=== PATIENT | female | born 1955 | race Caucasian/White ===

== ENCOUNTER → 2018-08-15 10:36 | Outpatient (CLI) | payer MEDICARE, OTHER, SELFPAY ==
--- NOTE | 2018-08-15 10:38 | DI.RAD.S_ITS ---
PROCEDURE: XR WRIST LT MIN 3V INDICATIONS: left wrist pain after fall TECHNIQUE: 4 views of the wrist were acquired. COMPARISON: None. FINDINGS: Bones: No fractures or dislocations. No suspicious bony lesions. Moderate first CMC joint degeneration. Scaphoid view: Intact scaphoid. Soft tissues: No suspicious soft tissue calcifications. IMPRESSION: No displaced fracture seen. If there is continued pain, followup exam or additional imaging such as MRI or CT could be performed for further assessment. Dictated by: Joseluis Bowens [facility] Interpreted: Tish Guevara MD on 08/15/2018 at 11:04 Approved by: Tish Guevara MD, PhD on 08/15/2018 at 15:11
== END ==
PROVIDERS: PCP Family Medicine; Visit Provider Family Medicine
DX: M25.532 Pain in left wrist (principal)
CPT/HCPCS: 73110

== ENCOUNTER → 2018-09-22 07:56 | Outpatient (CLI) | payer MEDICARE, OTHER, SELFPAY ==
--- NOTE | 2018-09-22 | DI.MG.S_ITS ---
BILATERAL DIGITAL SCREENING MAMMOGRAM 3D/2D WITH CAD: 09/22/2018 CLINICAL: Routine screening. Comparison is made to exams dated: 08/19/2017 mammogram, 07/02/2016 mammogram, and 06/13/2015 mammogram - [facility]. The tissue of both breasts is extremely dense, which lowers the sensitivity of mammography. Current study was also evaluated with a Computer Aided Detection (CAD) system. No significant masses, calcifications, or other findings are seen in either breast. There has been no significant interval change. IMPRESSION: NEGATIVE There is no mammographic evidence of malignancy. A 1 year screening mammogram is recommended. This exam was interpreted at Station ID: [id number]. NOTE: For mammograms, a report in lay terms will be sent to the patient. Approximately 15% of breast malignancies will not be visualized mammographically. In the management of a palpable breast mass, a negative mammogram must not discourage biopsy of a clinically suspicious lesion. Electronically Signed By: Stefani saenz/cynthia:09/22/2018 09:28:10 letter sent: Normal Exam ACR BI-RADS Category 1: Negative 3341F
== END ==
PROVIDERS: PCP Family Medicine; Visit Provider Family Medicine
DX: Z12.31 Encounter for screening mammogram for malignant neoplasm of breast (principal)
CPT/HCPCS: 77063; 77067

== ENCOUNTER → 2019-10-05 11:13 | Outpatient (CLI) | payer MEDICARE, OTHER, SELFPAY ==
--- NOTE | 2019-10-05 | DI.MG.S_ITS ---
BILATERAL DIGITAL SCREENING MAMMOGRAM 3D/2D WITH CAD: 10/05/2019 CLINICAL: Routine screening. Comparison is made to exams dated: 09/22/2018 mammogram - [facility], 08/19/2017 mammogram, and 07/02/2016 mammogram - [facility]. The tissue of both breasts is heterogeneously dense. This may lower the sensitivity of mammography. Current study was also evaluated with a Computer Aided Detection (CAD) system. No significant masses, calcifications, or other findings are seen in either breast. There has been no significant interval change. IMPRESSION: NEGATIVE There is no mammographic evidence of malignancy. A 1 year screening mammogram is recommended. This exam was interpreted at Station ID: [id number]. NOTE: For mammograms, a report in lay terms will be sent to the patient. Approximately 15% of breast malignancies will not be visualized mammographically. In the management of a palpable breast mass, a negative mammogram must not discourage biopsy of a clinically suspicious lesion. Electronically Signed By: Sagar ruelas/cynthia:10/05/2019 11:54:49 copy to: ARIK BLOUNT letter sent: Normal Exam ACR BI-RADS Category 1: Negative 3341F
== END ==
PROVIDERS: Family Provider Internal Medicine; PCP Family Medicine; Visit Provider Family Medicine
DX: Z12.31 Encounter for screening mammogram for malignant neoplasm of breast (principal)
CPT/HCPCS: 77063; 77067

== ENCOUNTER 2020-04-07 10:24 | Emergency (ER) | payer MEDICARE, OTHER, SELFPAY ==
[2020-04-07 10:53] VITALS: BP 175/84; PULSE 74; RESP 14; TEMP 37.2; O2SAT 97; BMI 22.0
--- NOTE | 2020-04-07 11:05 | DI.RAD.S_ITS ---
PROCEDURE: XR HAND RT MIN 3V INDICATIONS: hand swelling and pain TECHNIQUE: 3 views of the hand(s) acquired. COMPARISON: None. FINDINGS: Bones: No fractures or dislocations. Carpal bones are normally aligned. Osteoarthritic changes throughout right hand and wrist is seen. No suspicious bony lesions. Soft tissues: No suspicious soft tissue calcifications. IMPRESSION: Right hand and wrist joint osteoarthritis. No gross acute fracture or dislocation. Dictated by: Jai Fowler M.D. on 04/07/2020 at 11:36 Approved by: Jai Fowler M.D. on 04/07/2020 at 11:43
--- NOTE | 2020-04-07 11:05 | DI.RAD.S_ITS ---
PROCEDURE: XR WRIST RT MIN 3V INDICATIONS: hand swelling and pain TECHNIQUE: 4 views of the wrist were acquired. COMPARISON: [facility], CR, XR WRIST LT MIN 3V, 08/15/2018, 10:48. FINDINGS: Bones: No fractures or dislocations. Osteoarthritic changes throughout wrist joints are seen more prominent at first CMC joint and scaphotrapezial joint. No suspicious bony lesions. Scaphoid view: Scaphoid is grossly intact. Nonspecific intraosseous cyst formation in distal scaphoid is seen. Soft tissues: No suspicious soft tissue calcifications. IMPRESSION: Wrist joint osteoarthritis. No acute wrist fracture or dislocation. Intraosseous cyst formation in distal scaphoid. Dictated by: Jai Fowler M.D. on 04/07/2020 at 11:43 Approved by: Jai Fowler M.D. on 04/07/2020 at 11:44
--- NOTE | 2020-04-07 12:06 | ED_ITS ---
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 Her history is notable for a recent trapezium fracture, partial rupture of the flexor carpi radialis, and a de Quervain tenosynovitis that were diagnosed earlier this year. She did wear a splint for approximately 2 months but began to do normal activities in early February and for the last her 2 months has been pretty much back to her normal routine, doing things like lifting weights doing dishes gardening etc. H were performed who will owever 5 days ago she woke up in the morning and the swelling and pain had returned and she says that it felt pretty much exactly like it did when she 1st had her injury. She reports no inciting incident, she does not remember lifting anything especially heavy, overuse compared to what she has been doing the last 2 months or anything else that might have caused the area to be come reinflamed. Notably, she is a retired physical therapist. The original injury occurred when she was lifting a extremely heavy logs to help her with a project. Her trapezium fracture was not discovered initially, but was found with a diagnostic ultrasound after she was having continued significant pain. She has seen Dr. Rodriguez for this previously. She notes that her pain today as a 5 or 6/10 and the pain worsening over the last 5 days is what has brought her into the emergency department. She did try taking a tramadol yesterday that she had left over from a recent issue with her other hand where she had a thorn embedded in her joint. This provided limited relief. She has been icing the area and attempted to wear the brace that she previously was wearing, however the swelling was enough that the brace is not fitting well and it was very uncomfortable. She is concerned about a possible nonunion of her trapezium. Last TNF inhibitor dose was approximately 3 weeks ago. Complaint: extremity pain Onset (ago): day(s) (5) Pain Consistency: constant Location: right Severity scale (1-10): 6 Quality: aching and sharp Radiation: none Relieving factors: cold therapy and medication Exacerbating factors: range of motion Associated symptoms: denies other symptoms Context: other (healing from de quervains, flexor carpi radialis tear and fracture of trapezium) Related Data Home Medications Medication Instructions Recorded Confirmed cyclosporine [Restasis] 1 drp BID #0 02/14/18 Previous Rx's Medication Instructions Recorded lisinopril 2.5 mg tablet 2.5 mg PO DAILY #90 tab 04/04/18 ibuprofen 600 mg PO Q6H PRN #20 tab NS MDD 04/07/20 3200mg Allergies Allergy/AdvReac Type Severity Reaction Status Date / Time dapsone [DAPSONE] Allergy Mild facial Verified 04/07/20 10:57 swelling Review of Systems <Rosalia Zhao PA-C - Last Filed: 04/07/20 22:50> Review of Systems Narrative: GENERAL: Denies chills, fatigue, malaise, fever, sweats. HEENT: Denies sinus pain, ear pain, sore throat, difficulty swallowing, dizziness. RESPIRATORY: Denies dyspnea, cough, wheezing, hemoptysis, sputum. CARDIOVASCULAR: Denies chest pain, palpitations, orthopnea, edema, GASTROINTESTINAL: Denies nausea, vomiting, abdominal pain, diarrhea, cons tipation, melena. : Denies dysuria, frequency, incontinence, hematuria, urinary retention. MUSCULOSKELETAL: She has significant pain and some swelling of her right wrist (thumbside) that has been present for 5 days now, pain has been worsening she has reduced range of motion 2nd to the pain and swelling. Denies weakness, or bony pain SKIN: Denies rash, skin lesions, or other NEUROLOGIC: Denies weakness, headache, numbness, change in speech, confusion, seizures, incoordination. PSYCHIATRIC: No concerning psychosocial issues. 12 point review of systems is negative except for those stated above Patient History <Rosalia Zhao PA-C - Last Filed: 04/07/20 22:50> Medical History Abnormal Pap smear of cervix (Resolved ~1979) Cataract (Resolved ~2008) Cervical spine disease (Chronic) Chicken pox (Resolved ~1992) Colon polyps (Resolved 2002) GA (granuloma annulare) (Chronic 2012) History of recurrent ear infection (Chronic 2014) Hypertension (Chronic 2014) Lumbar disc disease (Chronic 1997) Mitral murmur (Chronic 1970) Psoriasis (Chronic) Seasonal affective disorder (Chronic 1997) Surgical History Anesthesia complication (Resolved) History of cataract removal with insertion of prosthetic lens (Resolved 2007) History of discectomy (Resolved 1997) History of lumbar fusion (Resolved 2008) History of lumbar fusion (Resolved 2016) History of thumb surgery (Resolved 1982) History of umbilical hernia repair (Resolved 2000) Status post appendectomy (Resolved 1980) Status post bunionectomy (Resolved 1996) Family History Father Mental health problem Grandfather Heart disease Mother Colon cancer Heart disease Congestive heart failure Rheumatic heart disease Sister Age: 69 Ventricular tachycardia Grandmother No problems noted. Grandfather Heart disease Grandmother No problems noted. Sister No problems noted. Social History Smoking Status: Unknown if ever smoked Smoking Status: Unknown if ever smoked alcohol intake frequency: 0-2 drinks per day Substance Use Type: does not use Exam <Rosalia Zhao PA-C - Last Filed: 04/07/20 22:50> Initial Vital Signs Initial Vital Signs: Vital Signs Temperature 98.9 F 04/07/20 10:53 Pulse Rate 74 04/07/20 10:53 Respiratory Rate 14 04/07/20 10:53 Blood Pressure 175/84 H 04/07/20 10:53 Pulse Oximetry 97 04/07/20 10:53 <Stewart Herrera MD - Last Filed: 04/08/20 07:53> Initial Vital Signs Initial Vital Signs: Vital Signs Temperature 98.9 F 04/07/20 10:53 Pulse Rate 74 04/07/20 10:53 Respiratory Rate 14 04/07/20 10:53 Blood Pressure 175/84 H 04/07/20 10:53 Pulse Oximetry 97 04/07/20 10:53 Course <Rosalia Zhao PA-C - Last Filed: 04/07/20 22:50> Orders Ordered: Discontinued Medications Ketorolac Tromethamine (Toradol) 15 mg IM NOW ONE Stop: 04/07/20 12:28 Last Admin: 04/07/20 13:04 Dose: 15 mg Documented by: LOC Consultations Consultation #1: Spoke with Dr. Coleman on-call for Ortho who advises it is possible that her severe pain could be due to this cyst in her scaphoid was noted on x-ray. Advises that we put her in immobilization and that she continue NSAIDs over the weekend definitely keep her appointment scheduled already for Saturday with Dr. Rodriguez as she may need some more detailed workup for this. Time: 12:42 Vital Signs Vital signs: Vital Signs - 8 hr 04/07/20 10:53 Temperature 98.9 F Pulse Rate 74 Respiratory Rate 14 Blood Pressure 175/84 H Pulse Oximetry 97 <Stewart Herrera MD - Last Filed: 04/08/20 07:53> Orders Ordered: Discontinued Medications Ketorolac Tromethamine (Toradol) 15 mg IM NOW ONE Stop: 04/07/20 12:28 Last Admin: 04/07/20 13:04 Dose: 15 mg Documented by: LOC Vital Signs Vital signs: Vital Signs - 8 hr 04/07/20 10:53 Temperature 98.9 F Pulse Rate 74 Respiratory Rate 14 Blood Pressure 175/84 H Pulse Oximetry 97 MDM - Extremity (Nontraumatic) <Rosalia Zhao PA-C - Last Filed: 04/07/20 22:50> Imaging Data Extremity x-ray #1: Attestation: I personally reviewed and interpreted this imaging study as follows: Radiologist's Impression: [address] [address] XRay Report Signed Patient: Joellen Dee EMR#: [id number] : [id number]:[id number] Age/Sex: 64 / FDate of Service: 04/07/20 Loc: ED Accession Number: [id number] Procedure: XR wrist RT min 3V Ordering Provider: Stewart Herrera MD PROCEDURE: XR WRIST RT MIN 3V INDICATIONS: hand swelling and pain TECHNIQUE: 4 views of the wrist were acquired. COMPARISON: [facility], CR, XR WRIST LT MIN 3V, 08/15/2018, 10:48. FINDINGS: Bones: No fractures or dislocations. Osteoarthritic changes throughout wrist joints are seen more prominent at first CMC joint and scaphotrapezial joint. No suspicious bony lesions. Scaphoid view: Scaphoid is grossly intact. Nonspecific intraosseous cyst formation in distal scaphoid is seen. Soft tissues: No suspicious soft tissue calcifications. IMPRESSION: Wrist joint osteoarthritis. No acute wrist fracture or dislocation. Intraosseous cyst formation in distal scaphoid. Dictated by: Jai Fowler M.D. on 04/07/2020 at 11:43 Approved by: Jai Fowler M.D. on 04/07/2020 at 11:44 MDM Narrative Medical decision making narrative: This is a well-appearing 64-year-old with a history of granuloma annulare, hypertension, recent R trapezium fracture, R de Quervain tenosynovitis and partial rupture of the R flexor carpi radialis who presents to the emergency department with severe right wrist pain that began approximately 5 days ago in the same area of her previous injuries. X-ray was notable for a osseous cyst of the scaphoid and ortho was consulted. She was ultimately discharged with her thumb spica splint that had been previously fitted for her from previous injuries to the area and instructions for rice as well as a prescription for ibuprofen. She has a follow-up appointment with her orthopedist scheduled for telemedicine tomorrow as well as an in-person visit on Saturday. Differential diagnoses that were considered included trapezium fracture nonunion, tenosynovitis, cyst, osseous cyst Discharge Plan Departure Patient Disposition: Home Clinical Impression: Bone cyst, Acute pain of right wrist Discharge Date/Time: 04/07/20 13:31 Instructions: How To Perform RICE (Rest, Ice, Compress, Elevate), DI for Wrist Pain Activity Restrictions/Additional Instructions: Thank you for letting us be part of your care today in the emergency department. There is no evidence of an emergent or life threatening illness at this time, but follow up with your doctor in 1-2 days is recommended nonetheless to continue to rule out serious underlying causes of your symptoms. Please call the office for an appointment. Please return to the Emergency Department for any worsening or persistent symptoms. Please take medications as directed. After consultation with the orthopedic surgeon on-call, he does advise it is very important that you keep your follow-up appointment on Saturday with Dr. Rodriguez as you need a more specific workup and further evaluation. It is possible that the significant pain you have been experiencing is due to the cyst that is present in your scaphoid bone. You should continue to use RICE, and keep your wrist in the thumb spica splint at all times. If it is bothersome to wear this splint with the swelling that you have despite icing, you may use the soft splint that you have that I recommend doing an Sam wrap underneath it to give you better support. Ideally wearing a thumb spica splint is preferable The best medications for the type of pain you are having are NSAIDs. I have prescribed ibuprofen 600 mg tabs for you with a paper prescription printed out as we discussed. And you can take a maximum of 3200 mg per day spaced out. If you do not need this much is preferable to only take a maximum 2400mg. I have provided a printout of the x-ray interpretations from today as well for you. I do recommend he also keep your telemedicine visit that you have set up for tomorrow. Prescriptions: New ibuprofen 600 mg tablet 600 mg PO Q6H MDD 3200mg PRN (Reason: pain) Qty: 20 RF: 0 No Action cyclosporine [Restasis] 1 EACH dropperette 1 drp BID Qty: 0 RF: 0 lisinopril 2.5 mg tablet 2.5 mg PO DAILY Qty: 90 RF: 3 Referrals: Natalie Barker MD [Primary Care Provider] - Naresh Rodriguez MD [Physician] -
[2020-04-07 12:52] VITALS: BP 128/59; PULSE 62; RESP 16; O2SAT 100
[2020-04-07] MEDS: KETOROLAC 60 MG/2 ML VIAL 15 MG IM (13:04)
== END 2020-04-07 13:31 | disposition home or self-care (01) ==
PROVIDERS: Emergency Provider Student in an Organized Health Care Education/Training Program; Family Provider Internal Medicine; PCP Family Medicine
DX: M85.60 Other cyst of bone, unspecified site (principal); M25.531 Pain in right wrist
CPT/HCPCS: 73110; 73130; 96372; 99283; J1885

== ENCOUNTER → 2020-11-30 15:37 | Outpatient (CLI) | payer MEDICARE, OTHER, SELFPAY ==
--- NOTE | 2020-11-30 | DI.MG.S_ITS ---
BILATERAL DIGITAL SCREENING MAMMOGRAM 3D/2D WITH CAD: 11/30/2020 CLINICAL: Routine screening. Comparison is made to exams dated: 10/05/2019 mammogram, 09/22/2018 mammogram - [facility], and 08/19/2017 mammogram - [facility]. The tissue of both breasts is heterogeneously dense. This may lower the sensitivity of mammography. Current study was also evaluated with a Computer Aided Detection (CAD) system. No significant masses, calcifications, or other findings are seen in either breast. There has been no significant interval change. IMPRESSION: NEGATIVE There is no mammographic evidence of malignancy. A 1 year screening mammogram is recommended. This exam was interpreted at Station ID: [id number]. NOTE: For mammograms, a report in lay terms will be sent to the patient. Approximately 15% of breast malignancies will not be visualized mammographically. In the management of a palpable breast mass, a negative mammogram must not discourage biopsy of a clinically suspicious lesion. Electronically Signed By: Sagar Hirsch M.D. at/devrad:11/30/2020 16:55:59 copy to: Natalie Barker M.D., [facility], ph: [phone], fax: [phone] letter sent: Normal Exam ACR BI-RADS Category 1: Negative 3341F
== END ==
PROVIDERS: Family Provider Internal Medicine; PCP Family Medicine; Referring Provider Internal Medicine; Visit Provider Internal Medicine
DX: Z12.31 Encounter for screening mammogram for malignant neoplasm of breast (principal)
CPT/HCPCS: 77063; 77067

== ENCOUNTER → 2020-12-02 08:38 | Outpatient (CLI) | payer MEDICARE, OTHER, SELFPAY ==
[2020-12-02] MEDS: COVID-19 VACC #1, MRNA(MOD) 100 MCG/0.5 ML VIAL IM (08:46)
== END ==
PROVIDERS: Family Provider Internal Medicine; PCP Family Medicine; Visit Provider Internal Medicine
DX: Z23 Encounter for immunization (principal)
CPT/HCPCS: 0011A; 91301

== ENCOUNTER → 2020-12-30 08:49 | Outpatient (CLI) | payer MEDICARE, OTHER, SELFPAY ==
[2020-12-30] MEDS: COVID-19 VACC #2, MRNA(MOD) 100 MCG/0.5 ML VIAL IM (08:55)
== END ==
PROVIDERS: Family Provider Internal Medicine; PCP Family Medicine; Visit Provider Internal Medicine
DX: Z23 Encounter for immunization (principal)
CPT/HCPCS: 0012A; 91301

== ENCOUNTER → 2021-03-27 12:39 | Outpatient (CLI) | payer MEDICARE, OTHER, SELFPAY ==
--- NOTE | 2021-03-27 | DI.RAD.S_ITS ---
PROCEDURE: XR DEXA AXIAL SKELETON INDICATIONS: Other specified disorders of bone density and stru COMPARISON: None. FINDINGS: This blank DEXA report has been sent in error by the PACS system. The correct and complete report will be forthcoming in 1-2 days. Thank you for your patience and understanding. Dictated by: Tish Guevara MD, PhD on 03/27/2021 at 17:34 Approved by: Tish Guevara MD, PhD on 03/27/2021 at 17:35
== END ==
PROVIDERS: Family Provider Internal Medicine; PCP Family Medicine; Referring Provider Internal Medicine; Visit Provider Internal Medicine
DX: Z78.0 Asymptomatic menopausal state; Z82.62 Family history of osteoporosis
CPT/HCPCS: 77080

== ENCOUNTER → 2021-04-18 12:08 | Outpatient (CLI) | payer MEDICARE, OTHER, SELFPAY ==
--- NOTE | 2021-04-18 | DI.MRI.S_ITS ---
PROCEDURE: MR CERVICAL SPINE WO CON INDICATIONS: Cervicalgia TECHNIQUE: Noncontrast sagittal T1 spin echo and T2 fast spin echo, sagittal STIR, foraminal oblique sagittal T2 fast spin echo, and axial gradient echo or T2 fast spin echo through the cervical spine. COMPARISON: None. FINDINGS: Image quality: Excellent. Alignment and Curvature: There is loss of normal cervical lordosis. There is moderate kyphosis at C3-C6. Mild grade 1 anterolisthesis of C3 on C4. Mild grade 1 retrolisthesis of C6 on C7. Bone Marrow: Marrow demonstrates normal overall signal. Moderate reactive signal within the endplates adjacent to the C4-C5, C5-C6, and C6-C7 intervertebral discs. Mild reactive signal within the endplates adjacent to the C2-C3, C3-C4, and C7-T1 intervertebral discs. Spinal Cord: Visualized spinal cord has normal size and signal. No cerebellar tonsillar herniation. Paraspinous Soft Tissues: No paravertebral masses. Prevertebral soft tissues are normal in thickness. C2-C3: Moderate disc desiccation. Mild disc height loss and diffuse disc bulge. Mild facet and uncovertebral hypertrophy bilaterally. Mild canal stenosis. Moderate right and mild left foraminal stenosis. C3-C4: Mild disc height loss and desiccation. Mild diffuse disc bulge. Moderate facet and uncovertebral hypertrophy bilaterally. There is moderate to severe canal stenosis. Severe right and moderate to severe left foraminal stenosis. Right greater than left C4 nerve root compression. C4-C5: Severe disc height loss and desiccation. Mild diffuse disc bulge/osteophyte. Moderate right greater than left facet and uncovertebral hypertrophy bilaterally. There is severe canal stenosis with mild cord flattening. Severe right and moderate to severe left foraminal stenosis. Right greater than left C5 nerve root compression. C5-C6: Moderate disc height loss and desiccation. Mild diffuse disc bulge/osteophyte. Moderate facet and uncovertebral hypertrophy bilaterally. Moderate to severe canal stenosis. Minimal anterior cord flattening. Severe bilateral foraminal stenosis with bilateral C6 nerve root compression. C6-C7: Severe disc height loss and desiccation. Moderate diffuse disc bulge/osteophyte. Moderate facet and uncovertebral hypertrophy bilaterally. Severe canal stenosis. Mild cord flattening. Severe bilateral foraminal stenosis with bilateral C7 nerve root compression. C7-T1: Mild disc height loss. Moderate disc desiccation. Mild diffuse disc bulge. Moderate facet and uncovertebral hypertrophy bilaterally. Moderate canal stenosis. Severe left greater than right foraminal stenosis. Left greater than right C8 nerve root compression. IMPRESSION: 1. Multilevel degenerative disc and facet disease, as well as uncovertebral hypertrophy. 2. Multilevel canal stenoses, worst at C4-C5, C5-C6, and C6-C7, where there is mild cord flattening. Moderate to severe canal stenosis at C3-C4 is present. 3. Multilevel foraminal stenoses, worst at C3-C4, C4-C5, C5-C6, C6-C7, and C7-T1 where there is associated intraforaminal nerve root compression. Recommend correlation with clinical symptoms to ascertain relevance of these findings. Dictated by: Ilya Prescott M.D. on 04/18/2021 at 14:26 Approved by: Ilya Prescott M.D. on 04/18/2021 at 14:30
== END ==
PROVIDERS: Family Provider Internal Medicine; PCP Physician Assistant; Referring Provider Physician Assistant; Visit Provider Physician Assistant
DX: M50.31 Other cervical disc degeneration, high cervical region (principal); M48.02 Spinal stenosis, cervical region
CPT/HCPCS: 72141

== ENCOUNTER → 2021-10-26 18:06 | Outpatient (CLI) | payer MEDICARE, OTHER, SELFPAY ==
--- NOTE | 2021-10-26 | DI.MRI.S_ITS ---
PROCEDURE: MR WRIST RT WO/W CON INDICATIONS: Other psoriatic arthropathy TECHNIQUE: Noncontrast coronal proton density fast spin echo and T2 fast spin echo with fat saturation; coronal 3-D gradient echo, axial T1 spin echo and T2 fast spin echo with fat saturation, axial T1 spin echo with fat saturation, sagittal T1 spin echo through the wrist. Post-contrast axial, coronal, and sagittal T1 spin echo with fat saturation through the wrist. COMPARISON: [facility] Outside Film, MR, MR WRIST RIGHT WITHOUT CONTRAST, 11/26/2019, 11:47. [facility], CR, XR HAND RT MIN 3V, 04/07/2020, 11:12. [facility], CR, XR WRIST RT MIN 3V, 04/07/2020, 11:12. FINDINGS: Image quality: Excellent. Bones and cartilage: Areas of osseous edema or osteitis are seen at the bases of the metacarpals (most prominently the 4th metacarpal), throughout the distal carpal row (most prominent at the trapezium and trapezoid), mildly within the proximal carpal row and at the distal ulnar aspect of the radius, and prominently within the distal ulna extending to the ulnar styloid. Possible erosions are seen within the triquetrum. Severe degenerative changes are seen in the 1st carpometacarpal and to a lesser extent at the triscaphe joint. Foci of cortical irregularity adjacent to the joints may represent degenerative cystic changes or possibly small erosions. A small focus of cortical irregularity is seen at the distal dorsal aspect of the capitate. Cortical irregularity at the ulnar styloid and fovea a T1 hypointense signal is suspicious for a chronic erosion. Mild degenerative changes are seen at the distal radioulnar joint. The majority of these findings are new when compared to the prior MRI from 11/26/2019. Prominent joint effusions are seen throughout all 3 compartments of the wrist with prominent enhancing synovial hypertrophy. Carpal ligaments: The scapholunate and lunotriquetral ligaments appear intact. In the absence of intra-articular contrast, the extrinsic carpal ligaments are not well identified. On sagittal images, the pisohamate ligament appears intact. Triangular fibrocartilage complex: No definite tear of the triangle fibrocartilage complex is identified. Tendons and soft tissues: There is trace tenosynovitis of the extensor pollicis longus and extensor carpi ulnaris tendons. The remaining extensor tendons are grossly intact. There is mild tenosynovitis of the flexor carpi radialis tendon. The carpal tunnel structures appear normal, including the median nerve. The ulnar nerve appears normal within Guyon's canal. IMPRESSION: 1. Extensive osteitis throughout the visualized osseous structures of the wrist with probable osseous erosions. Prominent diffuse joint effusions are seen throughout the wrist with enhancing synovial hypertrophy. Findings are suspicious for an active inflammatory arthritis, in keeping with the provided history of psoriatic arthritis. 2. Mild tenosynovitis of the extensor pollicis longus, extensor carpi ulnaris, and flexor carpi radialis tendons. 3. Superimposed severe degenerative changes at the 1st carpometacarpal joint. Dictated by: Jose L Fisher M.D. on 10/27/2021 at 8:52 Approved by: Jose L Fisher M.D. on 10/27/2021 at 9:13
== END ==
PROVIDERS: Family Provider Internal Medicine; PCP Physician Assistant; Referring Provider Internal Medicine Rheumatology; Visit Provider Internal Medicine Rheumatology
DX: L40.59 Other psoriatic arthropathy (principal); M65.831 Other synovitis and tenosynovitis, right forearm
CPT/HCPCS: 73223; A9579

== ENCOUNTER → 2022-09-14 07:23 | Outpatient (CLI) | payer MEDICARE, OTHER, SELFPAY ==
[2022-09-14 09:03] LABS: Alanine Aminotransferase 20 IU/L (<35); Albumin 4.1 g/dL (3.5-5.0); Albumin Globulin Ratio 1.7 (1.0-2.8); Alkaline Phosphatase 57 U/L (38-126); Aspartate Aminotransferase 24 IU/L (14-36); BUN Creatinine Ratio 30.8 (6-22); Bilirubin Total 0.6 mg/dL (0.2-1.3); Blood Urea Nitrogen 20 mg/dL (7-17); Calcium 9.2 mg/dL (8.4-10.2); Carbon Dioxide 27 mmol/L (22-32); Chloride 104 mmol/L (98-107); Cholesterol 188 mg/dL (140-199); Estimated Glomerular Filt Rate > 60 mL/min (>60); Globulin 2.4 g/dL (1.7-4.1); Glucose 91 mg/dL (80-110); HDL Cholesterol 77 mg/dL (40-60); HEMOLYSIS < 15 (0-50); LDL Cholesterol Calculated 93 mg/dL (<100); Potassium 4.2 mmol/L (3.4-5.1); Sodium 138 mmol/L (137-145); Total Protein 6.5 g/dL (6.3-8.2); Triglycerides 89 mg/dL (35-150)
[2022-09-14 09:25] LABS: TSH w/ Reflex to FT4 2.43 uIU/mL (0.47-4.68)
== END ==
PROVIDERS: Family Provider Internal Medicine; PCP Family Medicine; Referring Provider Family Medicine; Visit Provider Family Medicine
DX: Z13.6 Encounter for screening for cardiovascular disorders (principal); R25.2 Cramp and spasm; Z13.29 Encounter for screening for other suspected endocrine disorder; Z13.220 Encounter for screening for lipoid disorders; L92.0 Granuloma annulare; R10.9 Unspecified abdominal pain; R14.0 Abdominal distension (gaseous)
CPT/HCPCS: 36415; 80053; 80061; 84443

== ENCOUNTER → 2022-12-04 10:01 | Outpatient (CLI) | payer MEDICARE, OTHER, SELFPAY ==
--- NOTE | 2022-12-04 | DI.MG.S_ITS ---
BILATERAL DIGITAL SCREENING MAMMOGRAM 3D/2D WITH CAD: 12/04/2022 CLINICAL: Routine screening. Comparison is made to exams dated: 11/30/2020 mammogram, 10/05/2019 mammogram, and 09/22/2018 mammogram - [facility]. Both breasts are heterogeneously dense, which may obscure small masses (category c / 51-75% glandular tissue). Current study was also evaluated with a Computer Aided Detection (CAD) system. No significant masses, calcifications, or other findings are seen in either breast. There has been no significant interval change. IMPRESSION: NEGATIVE There is no mammographic evidence of malignancy. A 1 year screening mammogram is recommended. Based on the Tyrer Cuzick model (a risk assessment model) the patient's lifetime risk is 10.2% and her 10 year risk is 6.1%. According to the ACR, ACS, and NCCN guidelines, an annual breast MRI exam along with mammogram is recommended if the patient's lifetime risk is 20% or greater. This exam was interpreted at Station ID: [id number]. NOTE: For mammograms, a report in lay terms will be sent to the patient. Approximately 15% of breast malignancies will not be visualized mammographically. In the management of a palpable breast mass, a negative mammogram must not discourage biopsy of a clinically suspicious lesion. Electronically Signed By: Sagar Hirsch M.D. at/cynthia:12/04/2022 18:47:48 copy to: Natalie Barker M.D., [employer], ph: [phone], fax: [phone] letter sent: Normal Exam ACR BI-RADS Category 1: Negative 3341F
== END ==
PROVIDERS: Family Provider Internal Medicine; PCP Family Medicine; Referring Provider Family Medicine; Visit Provider Family Medicine
DX: Z12.31 Encounter for screening mammogram for malignant neoplasm of breast (principal)
CPT/HCPCS: 77063; 77067

== ENCOUNTER → 2023-04-12 06:49 | Outpatient (CLI) | payer MEDICARE, OTHER, SELFPAY ==
--- NOTE | 2023-04-12 | DI.US.S_ITS ---
PROCEDURE: US PELVIC COMPLETE INDICATIONS: BLOATING/PELVIC PAIN TECHNIQUE: Real-time scanning was performed of the pelvic organs, with image documentation. Additional endovaginal scanning was necessary due to incomplete visualization of the adnexal and endometrial structures by transabdominal scanning. COMPARISON: [facility], , US PELVIC COMPLETE, 03/18/2018, 10:31. FINDINGS: Uterus: Uterus is anteverted and normal in size at 5.7 x 2.4 x 4.0 cm. The myometrium is heterogeneous. The endometrium measures 0.6 mm combined thickness. Ovaries: Right ovary not visualized. Left ovary measures 0.8 x 1.0 x 0.8 centimeters, volume of 0.4 milliliter. Other: No pathologic free abdominal or pelvic fluid. IMPRESSION: No sonographic findings to explain the patient's bloating and cramping. Endometrium is thin, measuring 0.6 millimeters. We strive to produce accurate, complete, and clear reports of imaging services. To assist us in improving patient care, this report was composed using standard report templates and voice recognition software. Therefore, it may contain abnormal punctuation, insertions and/or omissions. Occasional wrong-word or sound-alike substitutions may occur. Though we review the report and make efforts to correct it, we do recommend that the report be read carefully in proper context to recognize any text inaccuracies. Dictated by: Brendon Rowan M.D. on 04/12/2023 at 8:46 Approved by: Berndon Rowan M.D. on 04/12/2023 at 8:48
== END ==
PROVIDERS: Family Provider Internal Medicine; PCP Family Medicine; Referring Provider Nurse Practitioner Family; Visit Provider Nurse Practitioner Family
DX: R14.0 Abdominal distension (gaseous) (principal); R10.2 Pelvic and perineal pain
CPT/HCPCS: 76830; 76856

== ENCOUNTER → 2023-07-24 09:01 | Outpatient (CLI) | payer MEDICARE, OTHER, SELFPAY ==
[2023-07-24 10:15] LABS: Add Manual Diff / Slide Review NO; Basophils Absolute Auto 0 /uL (0-100); Basophils Percent Auto 0.6 % (0-2); Eosinophils Absolute Auto 200 /uL (0-450); Eosinophils Percent Auto 3.8 % (2-4); Hematocrit 40.7 % (36-46); Lymphocytes Absolute Auto 2400 /uL (1100-4500); Lymphocytes Percent Auto 46.1 % (25-40); Mean Corpuscular HGB Conc 34.4 % (30-36); Mean Corpuscular Hemoglobin 29.9 PG (26-34); Mean Corpuscular Volume 86.9 fL (80-100); Monocytes Absolute Auto 500 /uL (0-900); Neutrophils Absolute Auto 2100 /uL (1500-7000); Neutrophils Percent Auto 40.5 % (50-75); Platelet Count 282 X10^3/uL (150-400); Red Blood Cell Count 4.69 X10^6/uL (4.0-5.2); Red Cell Distribution Width 13.7 % (11.6-14.8); White Blood Cell Count 5.3 X10^3/uL (4.5-11.0)
[2023-07-24 10:25] LABS: Erythrocyte Sedimentation Rate 1 MM/HR (0-20)
[2023-07-24 10:55] LABS: Alanine Aminotransferase 22 IU/L (<35); Albumin 4.3 g/dL (3.5-5.0); Albumin Globulin Ratio 1.7 (1.0-2.8); Alkaline Phosphatase 52 U/L (38-126); Aspartate Aminotransferase 27 IU/L (14-36); BUN Creatinine Ratio 28.4 (6-22); Bilirubin Total 0.6 mg/dL (0.2-1.3); Blood Urea Nitrogen 19 mg/dL (7-17); C-Reactive Protein Quant < 0.5 mg/dL (<1.0); Calcium 9.7 mg/dL (8.4-10.2); Carbon Dioxide 27 mmol/L (22-32); Chloride 102 mmol/L (98-107); Estimated Glomerular Filt Rate > 60 mL/min (>60); Globulin 2.5 g/dL (1.7-4.1); Glucose 89 mg/dL (80-110); HEMOLYSIS < 15 (0-50); Potassium 4.9 mmol/L (3.4-5.1); Sodium 138 mmol/L (137-145); Total Protein 6.8 g/dL (6.3-8.2)
== END ==
PROVIDERS: Family Provider Internal Medicine; PCP Family Medicine; Referring Provider Family Medicine; Visit Provider Family Medicine
DX: I10 Essential (primary) hypertension (principal); L92.0 Granuloma annulare; Z00.00 Encounter for general adult medical examination without abnormal findings
CPT/HCPCS: 36415; 80053; 85025; 85651; 86140

== ENCOUNTER → 2023-08-07 15:27 | Outpatient (CLI) | payer MEDICARE, OTHER, SELFPAY ==
--- NOTE | 2023-08-07 15:28 | DI.RAD.S_ITS ---
PROCEDURE: XR CHEST 2V INDICATIONS: shortness of breath TECHNIQUE: 2 views of the chest were acquired. COMPARISON: None. FINDINGS: Surgical changes and devices: None. Lungs and pleura: Lungs are clear. No pleural effusions or pneumothorax. Mediastinum: Mediastinal contours are normal. Heart size is normal. Bones and chest wall: No suspicious bony abnormalities. Soft tissues appear unremarkable. IMPRESSION: No acute cardiopulmonary abnormality is seen. Dictated by: Salome Way M.D. on 08/07/2023 at 16:41 Approved by: Salome Way M.D. on 08/07/2023 at 16:44
== END ==
PROVIDERS: Family Provider Internal Medicine; PCP Family Medicine; Referring Provider Internal Medicine Critical Care Medicine; Visit Provider Internal Medicine Critical Care Medicine
DX: R06.02 Shortness of breath (principal)
CPT/HCPCS: 71046; 99214

== ENCOUNTER → 2023-09-11 13:40 | Outpatient (CLI) | payer MEDICARE, OTHER, SELFPAY ==
--- NOTE | 2023-09-11 13:42 | DI.RAD.S_ITS ---
Bone Density Report Name: TATYANA WOMACK Age: 68 Sex: Female Ethnicity: White Date of : 1955 Indication: postmenopausal; screening for osteoporosis; Referring Provider: KENTRELL CRUZ Study: Bone densitometry was performed. Exam Date: September 11, 2023 Accession number: [id number] Bone Density: Region BMD T-score Z-score Classification AP Spine(L1, L2) 1.067 0.8 2.8 Normal Femoral Neck (Left) 0.879 0.3 2.1 Normal Total Hip (Left) 0.988 0.4 1.9 Normal Femoral Neck (Right) 0.852 0.0 1.8 Normal Total Hip (Right) 0.916 -0.2 1.3 Normal Total Hip Mean 0.952 0.1 1.6 Normal World Health Organization criteria for BMD impression classify patients as: Normal (T-score at or above -1.0), Osteopenia (T-score between -1.0 and -2.5), or Osteoporosis (T-score at or below -2.5). 10-year Fracture Risk: FRAX not reported because: All T-scores for Spine Total, Hip Total, Femoral Neck at or above -1.0 Previous Exams: -- Region Exam Age BMD T-score BMD Change BMD Change Date g/cm2 vs Baseline vs Previous -- AP Spine (L1-L2) 09/11/2023 68 1.067 0.8 0.063 (6.2%)# 0.063 (6.2%)# 03/27/2021 65 1.004 0.2 Total Hip(Left) 09/11/2023 68 0.988 0.4 -0.019 (-1.9%)# -0.019 (-1.9%)# 03/27/2021 65 1.008 0.5 Total Hip(Right) 09/11/2023 68 0.916 -0.2 -0.082 (-8.3%)# -0.082 (-8.3%)# 03/27/2021 65 0.998 0.5 -- *Denotes significance at 95% confidence level, LSC for AP Spine = 0.022 g/cm2, LSC for Total Hip = 0.027 g/cm2 # Denotes dissimilar scan types or analysis methods Impression: The patient has normal bone mass. No significant bone loss was observed. Discussion: BONE DENSITY IS ABOVE THE MINIMUM DESIRABLE LEVEL AT ALL SKELETAL SITES TESTED. This patient's bone mineral density is above the minimum desirable level (T-score -1.0 or better) at all sites measured. The patient should follow a healthful lifestyle (good nutrition with adequate calcium and vitamin D, and appropriate weight-bearing exercise). Follow-Up: Consider repeating this study in 5 years or sooner if there is some new clinical indication. Reported by: JASON FREEMAN M.D. on 09/11/2023 3:24:00 PM.
--- NOTE | 2023-09-11 13:42 | DI.ECHO.S_ITS ---
[facility]---------+ [facility] +---------+ : : [address] : : : : [id number] : : : : Phone: [phone]---------+ Echocardiogram Report + + :Name: TATYANA WOMACK Study Date: 09/11/2023 Height: 68 in : :[facility] ReadingLocation: Weight: 145 lb : : Gender: Female BSA: 1.8 m2 : :: 1955 Age: 68 yrs BP: 147/84 mmHg: :Reason For Study: DECREASED EXERCISE TOLERANCE, SHORTNESS OF : :BREATH : :Ordering Physician: KENTRELL CRUZPerformed By: Ama Patel : :Referring: KENTRELL CRUZ : + + Interpretation Summary The ejection fraction is estimated to be 55-60%. Diastolic parameters suggest probable normal left ventricular diastolic function and normal filling pressures. The right ventricle is normal in size and function. There is mild mitral regurgitation. There is trace aortic regurgitation. Pulmonary artery pressures cannot be estimated because of the lack of a measurable TR jet velocity but the IVC suggests a CVP of around 3 mmHg. Procedure: A two-dimensional transthoracic echocardiogram with color flow and Doppler was performed. The study quality was technically adequate. There is no prior echocardiogram noted for this patient. The patient was in sinus rhythm with heart rates between 52-67 bpm during the exam. Left Ventricle: The left ventricle is normal in size and wall thickness. The ejection fraction is estimated to be 55-60%. Diastolic parameters suggest probable normal left ventricular diastolic function and normal filling pressures. Right Ventricle: The right ventricle is normal in size and function. Atria: The left atrial size is normal. Right atrial size is normal. There is no Doppler evidence for an interatrial shunt. Mitral Valve: The mitral valve leaflets appear mildly thickened, but open well. There is mild mitral regurgitation. Aortic Valve: The aortic valve is trileaflet. The aortic valve opens well. There is no aortic valve stenosis. There is trace aortic regurgitation. Tricuspid Valve: The tricuspid valve is normal in structure and function. There is trace tricuspid regurgitation. Pulmonary artery pressures cannot be estimated because of the lack of a measurable TR jet velocity but the IVC suggests a CVP of around 3 mmHg. Pulmonic Valve: The pulmonic valve leaflets are thin and pliable; valve motion is normal. There is mild pulmonic regurgitation. Great Vessels: The aortic root is normal size. The dimensions of the ascending aorta are normal. The IVC is of normal diameter and collapses greater than 50% with a sniff. This suggests a low right atrial pressure of 3 mm Hg. Pericardium/ Pleura There is no pericardial effusion. There is no pleural effusion. MMode/2D Measurements & Calculations LVIDd: 4.9 cm LVOT diam: 2.2 cm LVIDs: 3.4 cm Ao root diam: 3.2 cm FS: 31.9 % asc Aorta Diam: 3.5 cm EPSS: 0.79 cm Ao Arch Diam (Prox Trans): 2.4 cm IVSd: 1.0 cm LVPWd: 0.86 cm LV smith. diameter/BSA (cm/m^2): 2.8 LV sys. diameter/BSA (cm/m^2): 1.9 LA A2 area: 18.1 cm2 RA long axis: 5.2 cm LA A4 area: 16.8 cm2 RA area: 14.1 cm2 LA length (vol): 5.1 cm RA vol: 32.3 ml LA vol: 50.4 ml RA : 18.1 ml/m2 LA vol index: 28.2 ml/m2 IVC diam: 2.1 cm RVD1 (basal): 3.6 cm RVD2 (mid): 3.3 cm TAPSE: 1.9 cm Doppler Measurements & Calculations Ao V2 max: 124.0 cm/sec LVOT Max Preston: 85.0 cm/sec Ao V2 mean: 96.7 cm/sec LV V1 max P.9 mmHg Ao max P.1 mmHg LV V1 VTI: 19.1 cm Ao mean P.9 mmHg BRENT(I,D): 2.5 cm2 Ao V2 VTI: 29.4 cm BRENT(V,D): 2.6 cm2 sev ratio: 0.65 BRENT indexed to BSA (cm^2/m^2): 1.4 MV E max preston: 40.8 cm/sec PA V2 max: 80.4 cm/sec MV A max preston: 66.8 cm/sec PA V2 mean: 56.5 cm/sec MV E/A: 0.61 PA mean P.4 mmHg Med Peak E' Preston: 7.7 cm/sec PA pr(Accel): 29.3 mmHg E/E' med: 5.3 Lat Peak E' Preston: 6.8 cm/sec E/E' lat: 6.0 E/e' average: 5.6 MV dec time: 0.27 sec SV(LVOT): 73.0 ml Reading Physician:05:04 PM
== END ==
PROVIDERS: Family Provider Internal Medicine; PCP Family Medicine; Referring Provider Family Medicine; Visit Provider Family Medicine
DX: M81.0 Age-related osteoporosis without current pathological fracture (principal); I34.0 Nonrheumatic mitral (valve) insufficiency; R68.89 Other general symptoms and signs
CPT/HCPCS: 77080; 93306

== ENCOUNTER → 2023-09-12 11:43 | Outpatient (CLI) | payer MEDICARE, OTHER, SELFPAY | PROVIDERS: Family Provider Internal Medicine; PCP Family Medicine; Referring Provider Family Medicine; Visit Provider Family Medicine | DX: U07.1 COVID-19 (principal); R05.3 Chronic cough; R68.89 Other general symptoms and signs; J98.8 Other specified respiratory disorders | CPT/HCPCS: 94060; 94726; 94729 ==

== ENCOUNTER → 2023-12-11 09:36 | Outpatient (CLI) | payer MEDICARE, OTHER, SELFPAY ==
[2023-12-11 10:32] LABS: Hematocrit 43.6 % (36-46); Hemoglobin 14.8 g/dL (12.0-16.0); Mean Corpuscular Hemoglobin 29.2 PG (26-34); Mean Corpuscular Volume 85.9 fL (80-100); Platelet Count 129 X10^3/uL (150-400); Red Blood Cell Count 5.07 X10^6/uL (4.0-5.2); Red Cell Distribution Width 13.5 % (11.6-14.8); White Blood Cell Count 2.8 X10^3/uL (4.5-11.0)
[2023-12-11 10:35] LABS: Add Manual Diff / Slide Review YES
[2023-12-11 10:48] LABS: Neutrophils Absolute Manual 896 /uL (3000-5900); RBC Morphology Normal Morphology; Total Cells Counted 100
[2023-12-11 10:51] LABS: Alanine Aminotransferase 65 IU/L (<35); Albumin 3.9 g/dL (3.5-5.0); Albumin Globulin Ratio 1.4 (1.0-2.8); Alkaline Phosphatase 50 U/L (38-126); Aspartate Aminotransferase 101 IU/L (14-36); BUN Creatinine Ratio 16.4 (6-22); Bilirubin Total 0.7 mg/dL (0.2-1.3); Blood Urea Nitrogen 10 mg/dL (7-17); Calcium 9.3 mg/dL (8.4-10.2); Carbon Dioxide 28 mmol/L (22-32); Chloride 98 mmol/L (98-107); Estimated Glomerular Filt Rate > 60 mL/min (>60); Globulin 2.8 g/dL (1.7-4.1); Glucose 109 mg/dL (80-110); HEMOLYSIS < 15 (0-50); Lipase 518 U/L (23-300); Sodium 133 mmol/L (137-145); Total Protein 6.7 g/dL (6.3-8.2)
== END ==
PROVIDERS: Family Provider Internal Medicine; PCP Family Medicine; Referring Provider Family Medicine; Visit Provider Family Medicine
DX: R10.32 Left lower quadrant pain (principal)
CPT/HCPCS: 36415; 80053; 83690; 85007; 85025

== ENCOUNTER → 2023-12-11 15:05 | Outpatient (CLI) | payer MEDICARE, OTHER, SELFPAY ==
--- NOTE | 2023-12-11 15:07 | DI.CT.S_ITS ---
PROCEDURE: CT ABDOMEN PELVIS W CON INDICATIONS: left lower quadrant pain TECHNIQUE: After the administration of intravenous contrast, axial sections acquired from the lung bases to the pubic symphysis. Coronal and sagittal reformats were performed. For radiation dose reduction, the following was used: automated exposure control, adjustment of mA and/or kV according to patient size. COMPARISON: None. FINDINGS: Image quality: Diagnostic. Lower Chest: No significant findings. ABDOMEN: Liver: No solid mass. Gallbladder: No radiopaque gallstones or wall thickening. Biliary ducts: No biliary dilation. Pancreas: No ductal dilation. Spleen: Size is within normal limits. Adrenal Glands: No adrenal nodules. Kidneys and Ureters: No hydronephrosis. No solid mass. No complex renal cystic lesion which requires follow up. Stomach and Bowel: Normal colonic caliber, without significant wall thickening. Peritoneum: No abnormal intraperitoneal fluid. No free air. Ventral Wall: No hernia. Abdominal Nodes: No retroperitoneal or mesenteric adenopathy by size criteria. Vessels: Aorta and inferior vena cava are normal in size. PELVIS: Pelvic Organs: Unremarkable. Bladder: Unremarkable. Pelvic Nodes: No enlarged lymph nodes. Miscellaneous: No inguinal hernias are seen. Bones: No aggressive osseous abnormality. Posterior fixation hardware is grossly intact. IMPRESSION: 1. No acute intra-abdominal findings. Dictated by: Stefani Caicedo M.D. on 12/11/2023 at 16:47 Approved by: Stefani Caicedo M.D. on 12/11/2023 at 16:50
== END ==
PROVIDERS: Family Provider Internal Medicine; PCP Family Medicine; Referring Provider Family Medicine; Visit Provider Family Medicine
DX: R10.32 Left lower quadrant pain (principal)
CPT/HCPCS: 36415; 74177; 80053; 83690; 85007; 85025

== ENCOUNTER → 2023-12-30 10:26 | Outpatient (CLI) | payer MEDICARE, OTHER, SELFPAY ==
[2023-12-30 11:31] LABS: Add Manual Diff / Slide Review NO; Basophils Absolute Auto 0 /uL (0-100); Basophils Percent Auto 0.2 % (0-2); Eosinophils Absolute Auto 100 /uL (0-450); Eosinophils Percent Auto 1.6 % (2-4); Hematocrit 38.9 % (36-46); Hemoglobin 13.4 g/dL (12.0-16.0); Lymphocytes Absolute Auto 2900 /uL (1100-4500); Mean Corpuscular HGB Conc 34.4 % (30-36); Mean Corpuscular Volume 87.3 fL (80-100); Monocytes Absolute Auto 600 /uL (0-900); Monocytes Percent Auto 9.8 % (3-14); Neutrophils Absolute Auto 2800 /uL (1500-7000); Neutrophils Percent Auto 43.4 % (50-75); Platelet Count 262 X10^3/uL (150-400); Red Blood Cell Count 4.46 X10^6/uL (4.0-5.2); Red Cell Distribution Width 13.6 % (11.6-14.8); White Blood Cell Count 6.5 X10^3/uL (4.5-11.0)
[2023-12-30 11:46] LABS: Alanine Aminotransferase 19 IU/L (<35); Albumin Globulin Ratio 1.5 (1.0-2.8); Alkaline Phosphatase 57 U/L (38-126); Aspartate Aminotransferase 25 IU/L (14-36); BUN Creatinine Ratio 31.9 (6-22); Bilirubin Total 0.7 mg/dL (0.2-1.3); Blood Urea Nitrogen 23 mg/dL (7-17); Calcium 9.5 mg/dL (8.4-10.2); Carbon Dioxide 26 mmol/L (22-32); Chloride 104 mmol/L (98-107); Estimated Glomerular Filt Rate > 60 mL/min (>60); Globulin 2.6 g/dL (1.7-4.1); Glucose 95 mg/dL (80-110); HEMOLYSIS < 15 (0-50); Lipase 319 U/L (23-300); Potassium 4.2 mmol/L (3.4-5.1); Sodium 138 mmol/L (137-145); Total Protein 6.6 g/dL (6.3-8.2)
== END ==
LOC: LAB 10:27
PROVIDERS: Family Provider Internal Medicine; PCP Family Medicine; Referring Provider Family Medicine; Visit Provider Family Medicine
DX: R79.89 Other specified abnormal findings of blood chemistry (principal); K85.90 Acute pancreatitis without necrosis or infection, unspecified
CPT/HCPCS: 36415; 80053; 83690; 85025

== ENCOUNTER → 2023-12-30 10:32 | Outpatient (CLI) | payer MEDICARE, OTHER, SELFPAY ==
--- NOTE | 2023-12-30 | DI.MG.S_ITS ---
BILATERAL DIGITAL SCREENING MAMMOGRAM 3D/2D WITH CAD: 12/30/2023 CLINICAL: Routine screening. Comparison is made to exams dated: 12/04/2022 mammogram, 11/30/2020 mammogram, 09/22/2018 mammogram, and 10/05/2019 mammogram - [facility]. Both breasts are heterogeneously dense, which may obscure small masses (category c / 51-75% glandular tissue). Current study was also evaluated with a Computer Aided Detection (CAD) system. No significant masses, calcifications, or other findings are seen in either breast. There has been no significant interval change. IMPRESSION: NEGATIVE There is no mammographic evidence of malignancy. A 1 year screening mammogram is recommended. Based on the Tyrer Cuzick model (a risk assessment model) the patient's lifetime risk is 9.7% and her 10 year risk is 6.2%. According to the ACR, ACS, and NCCN guidelines, an annual breast MRI exam along with mammogram is recommended if the patient's lifetime risk is 20% or greater. This exam was interpreted at Station ID: [id number]. NOTE: For mammograms, a report in lay terms will be sent to the patient. Approximately 15% of breast malignancies will not be visualized mammographically. In the management of a palpable breast mass, a negative mammogram must not discourage biopsy of a clinically suspicious lesion. Electronically Signed By: Jerzy doll/cynthia:12/30/2023 16:42:56 copy to: Natalie Barker M.D., [facility], ph: [phone], fax: [phone] letter sent: Normal Exam ACR BI-RADS Category 1: Negative 3341F
== END ==
LOC: MAMMO 10:32
PROVIDERS: Family Provider Internal Medicine; PCP Family Medicine; Referring Provider Family Medicine; Visit Provider Family Medicine
DX: Z12.31 Encounter for screening mammogram for malignant neoplasm of breast (principal); R92.333 Mammographic heterogeneous density, bilateral breasts
CPT/HCPCS: 77063; 77067

== ENCOUNTER 2024-03-24 09:56 | Emergency (ER) | payer MEDICARE, OTHER, SELFPAY ==
[2024-03-24 10:07] VITALS: BP 171/78; PULSE 76; RESP 16; TEMP 37; O2SAT 99; BMI 21.6
--- NOTE | 2024-03-24 10:19 | ED_ITS ---
HPI - Neck Pain/Injury General Chief Complaint: Neck Pain/Injury Stated Complaint: neck pain Time Seen by Provider: 03/24/24 10:15 Source: patient Mode of arrival: Ambulatory Limitations: no limitations History of Present Illness HPI Narrative: Patient is a 68-year-old female who is here for evaluation of neck pain. Patient states that her symptoms started several weeks ago when she hit her head on a heavy shower door. Since that time she has had discomfort in the paraspinal region specifically on the left but is also having some midline discomfort. Is also having tingling down her right arm also tingling in her legs. She has been taking oral pain medications and also anti-inflammatories. Has a follow-up with her primary doctor scheduled for tomorrow. Related Data Home Medications Medication Instructions Recorded Confirmed golimumab 12.5 mg/mL intravenous 100 mg IV Q8W 10/16/22 12/11/23 solution (Simponi ARIA) resveratrol PO 10/16/22 12/11/23 NMN PO 07/24/23 12/11/23 cholecalciferol (vitamin D3) 125 125 mcg PO DAILY 07/24/23 12/11/23 mcg (5,000 unit) capsule hop-blk [id number]-[id number]-[id number]-prim PO 07/24/23 12/11/23 magnesium chloride PO 07/24/23 12/11/23 vitamin B complex [B PO 07/24/23 12/11/23 Complex-Vitamin B12] Previous Rx's Medication Instructions Recorded hydromorphone 2 mg tablet 2 mg PO Q6H PRN pain #20 tabs 12/11/23 (Dilaudid) ondansetron 4 mg disintegrating 4 mg PO Q6-8H PRN nausea and 12/11/23 tablet vomiting #30 tabs cyclobenzaprine 10 mg tablet 10 mg PO TID PRN muscle spasm #14 03/24/24 tabs diazepam 2 mg tablet (Valium) 2 mg PO BEDTIME PRN muscle spasm 03/24/24 #7 tabs Allergies Allergy/AdvReac Type Severity Reaction Status Date / Time dapsone [DAPSONE] Allergy Mild facial Verified 03/24/24 10:07 swelling Review of Systems Musculoskeletal Musculoskeletal: Reports system reviewed and no additional complaints, except as documented Integumentary/Breasts Skin/Breast: Reports system reviewed and no additional complaints, except as documented Neurologic Neurologic: Reports system reviewed and no additional complaints, except as documented Patient History Medical History Encounter for initial annual wellness visit (AWV) in Medicare patient Herpes Diverticular disease COVID Mitral murmur (1970) History of recurrent ear infection (2014) GA (granuloma annulare) (2012) Lumbar disc disease (1997) Cervical spine disease Seasonal affective disorder (1997) Hypertension (2014) Colon polyps (2002) Abnormal Pap smear of cervix (~1979) Cataract (~2008) Chicken pox (~1992) Psoriasis Surgical History Anesthesia complication History of cataract removal with insertion of prosthetic lens (2007) History of discectomy (1997) History of lumbar fusion (2008) History of lumbar fusion (2016) History of thumb surgery (1982) History of umbilical hernia repair (2000) Status post appendectomy (1980) Status post bunionectomy (1996) Family History Father Mental health problem Grandfather Heart disease Mother Colon cancer Heart disease Congestive heart failure Rheumatic heart disease Sister Age: 72 Ventricular tachycardia Grandmother No problems noted. Grandfather Heart disease Grandmother Pneumonia Sister No problems noted. Social History Smoking Status: Never smoker Smoking Status: Never smoker alcohol intake frequency: holidays/special occasions only Substance Use Type: does not use Exam Initial Vital Signs Initial Vital Signs: Vital Signs Temperature 98.6 F 03/24/24 10:07 Pulse Rate 76 03/24/24 10:07 Respiratory Rate 16 03/24/24 10:07 Blood Pressure 171/78 H 03/24/24 10:07 Pulse Oximetry 99 03/24/24 10:07 Oxygen Delivery Method Room Air 03/24/24 10:07 HENMT Head: normal to inspection and normocephalic Resp Effort & Inspection: normal respiratory effort Cardio Rate: regular rate Back/Spine/Pelvis Cervical Spine: cervical muscular tenderness and cervical spinal tenderness Thoracic/Lumbar Spine: No thoracic spinal tenderness Neuro General: patient alert, patient awake and moves all extremities Gait: normal gait Course Orders Ordered: ED Orders 03/24/24 10:19 XR cervical spine 2V or 3V Stat Discontinued Medications Diazepam (Diazepam 2 Mg Tablet) 2 mg PO NOW ONE Stop: 03/24/24 11:29 Last Admin: 03/24/24 11:32 Dose: 2 mg Documented By: LATOYA Vital Signs Vital signs: Vital Signs - 8 hr 03/24/24 10:07 Temperature 98.6 F Pulse Rate 76 Respiratory Rate 16 Blood Pressure 171/78 H Pulse Oximetry 99 Oxygen Delivery Method Room Air MDM - Neck Pain/Injury Imaging Data c spine x-ray: Radiologist's Impression: PROCEDURE: XR CERVICAL SPINE 2V OR 3V INDICATIONS: Paraspinal neck pain after injury TECHNIQUE: 4 view(s) of the cervical spine were acquired. COMPARISON: None. FINDINGS: Bones: There is loss of the expected cervical lordosis and focal kyphosis centered at C4-5. There is anterolisthesis of C4 on C5. Severe degenerative changes are present throughout the cervical spine including marked intervertebral disc space narrowing, endplate sclerosis, and osteophytosis. No acute compression deformities. Soft tissues: No prevertebral soft tissue swelling. IMPRESSION: Severe degenerative changes and cervical kyphosis. If there is high clinical suspicion for acute injury, CT of the cervical spine is recommended. [facility] Narrative Medical decision making narrative: X-ray show no fractures but does have quite a bit of arthritis. Her initial injury was several weeks ago. I have low suspicion for an acute ligamentous injury. I do suspect muscular etiology. She was using Flexeril at home but it was an old prescription. I will refill this. I will also provide a prescription for Valium that she can use at night. She has an appointment with her primary doctor tomorrow. She potentially will need more advanced imaging however her primary doctor can order this. She was given return precautions. Discharge Plan Departure Patient Disposition: Home Clinical Impression: Cervical muscle pain Instructions: DI for Neck Pain Activity Restrictions/Additional Instructions: Keep your scheduled appointment with your primary care doctor that you have for tomorrow. You may want to talk with him about a referral to see Physical therapy. Use the cyclobenzaprine/Flexeril during the day and the Valium at night as needed. Return to the emergency department for new symptoms. Prescriptions: New cyclobenzaprine 10 mg tablet 10 mg PO TID PRN (Reason: muscle spasm) Qty: 14 0RF diazepam [Valium] 2 mg tablet 2 mg PO BEDTIME PRN (Reason: muscle spasm) Qty: 7 0RF No Action Simponi ARIA 12.5 mg/mL solution 100 mg IV Q8W Rx Instructions: administer over 30 mins resveratrol PO hop-blk ugt-izabsrzq-pynt-prim PO magnesium chloride PO vitamin B complex [B Complex-Vitamin B12] PO cholecalciferol (vitamin D3) 125 mcg (5,000 unit) capsule 125 mcg PO DAILY NMN PO hydromorphone [Dilaudid] 2 mg tablet 2 mg PO Q6H PRN (Reason: pain) Qty: 20 0RF ondansetron 4 mg tablet,disintegrating 4 mg PO Q6-8H PRN (Reason: nausea and vomiting) Qty: 30 5RF Referrals: Doni Colon DO [Primary Care Provider] - Stand Alone Forms: Patient Portal/API
[2024-03-24] MEDS: diazePAM 2 MG TABLET PO (11:32)
[2024-03-24 11:53] VITALS: BP 168/80; PULSE 76; RESP 20; O2SAT 100
== END 2024-03-24 11:53 | disposition home or self-care (01) ==
PROVIDERS: Emergency Provider Emergency Medicine; Family Provider Internal Medicine; PCP Family Medicine
DX: M54.2 Cervicalgia (principal); W22.8XXA Striking against or struck by other objects, initial encounter
CPT/HCPCS: 72040; 99283

== ENCOUNTER → 2024-08-19 09:06 | Outpatient (CLI) | payer MEDICARE, OTHER, SELFPAY ==
[2024-08-19 10:47] LABS: Add Manual Diff / Slide Review NO; Basophils Absolute Auto 0 /uL (0-100); Basophils Percent Auto 0.5 % (0-2); Eosinophils Absolute Auto 200 /uL (0-450); Eosinophils Percent Auto 3.2 % (2-4); Hematocrit 40.2 % (36-46); Hemoglobin 13.7 g/dL (12.0-16.0); Lymphocytes Absolute Auto 2200 /uL (1100-4500); Lymphocytes Percent Auto 43.3 % (25-40); Mean Corpuscular HGB Conc 34.1 % (30-36); Mean Corpuscular Hemoglobin 29.4 PG (26-34); Mean Corpuscular Volume 86.3 fL (80-100); Monocytes Absolute Auto 500 /uL (0-900); Monocytes Percent Auto 9.2 % (3-14); Neutrophils Absolute Auto 2200 /uL (1500-7000); Neutrophils Percent Auto 43.8 % (50-75); Platelet Count 261 X10^3/uL (150-400); Red Blood Cell Count 4.66 X10^6/uL (4.0-5.2); Red Cell Distribution Width 14.2 % (11.6-14.8); White Blood Cell Count 5.1 X10^3/uL (4.5-11.0)
[2024-08-19 11:10] LABS: Alanine Aminotransferase 22 IU/L (<35); Albumin 3.9 g/dL (3.5-5.0); Albumin Globulin Ratio 1.4 (1.0-2.8); Alkaline Phosphatase 59 U/L (38-126); Aspartate Aminotransferase 27 IU/L (14-36); BUN Creatinine Ratio 35.5 (6-22); Bilirubin Total 0.7 mg/dL (0.2-1.3); Blood Urea Nitrogen 22 mg/dL (7-17); Calcium 9.6 mg/dL (8.4-10.2); Carbon Dioxide 28 mmol/L (22-32); Chloride 103 mmol/L (98-107); Cholesterol 214 mg/dL (140-199); Estimated Glomerular Filt Rate > 60 mL/min (>60); Globulin 2.7 g/dL (1.7-4.1); Glucose 87 mg/dL (80-110); HDL Cholesterol 77 mg/dL (40-60); HEMOLYSIS < 15 (0-50); LDL Cholesterol Calculated 112 mg/dL (<100); Lipase 201 U/L (23-300); Potassium 4.3 mmol/L (3.4-5.1); Sodium 135 mmol/L (137-145); Total Protein 6.6 g/dL (6.3-8.2); Triglycerides 123 mg/dL (35-150)
[2024-08-20 15:25] LABS: Hep C Virus Ab w/Reflex Quant NEGATIVE s/c (NEGATIVE)
== END ==
PROVIDERS: Family Provider Internal Medicine; PCP Family Medicine; Referring Provider Family Medicine; Visit Provider Family Medicine
DX: Z00.00 Encounter for general adult medical examination without abnormal findings (principal); I10 Essential (primary) hypertension; L92.0 Granuloma annulare; R22.1 Localized swelling, mass and lump, neck
CPT/HCPCS: 36415; 80053; 80061; 83690; 85025; 86803

== ENCOUNTER → 2024-08-27 16:32 | Outpatient (CLI) | payer MEDICARE, OTHER, SELFPAY ==
--- NOTE | 2024-08-27 16:33 | DI.US.S_ITS ---
PROCEDURE: US SOFT TISSUE HEAD AND NECK INDICATIONS: eval of Lt sided mass TECHNIQUE: Real-time scanning was performed of the neck region of interest, with image documentation. COMPARISON: None. FINDINGS: Area of interest demonstrates no focal mass, fluid collection or architectural distortion. IMPRESSION: Unremarkable exam. Dictated by: Barbara Ritchie M.D. on 08/28/2024 at 15:55 Approved by: Barbara Ritchie M.D. on 08/28/2024 at 15:56
== END ==
PROVIDERS: Family Provider Internal Medicine; PCP Family Medicine; Referring Provider Family Medicine; Visit Provider Family Medicine
DX: R22.1 Localized swelling, mass and lump, neck (principal)
CPT/HCPCS: 76536

== ENCOUNTER → 2024-11-02 14:48 | Outpatient (CLI) | payer MEDICARE, OTHER, SELFPAY ==
[2024-11-02 15:29] LABS: Crystals Body Fluid - IN-HOUSE NONE Present
== END ==
PROVIDERS: Family Provider Internal Medicine; PCP Family Medicine; Visit Provider Family Medicine
DX: M25.469 Effusion, unspecified knee (principal)
CPT/HCPCS: 89060

== ENCOUNTER → 2024-11-19 08:20 | Outpatient (CLI) | payer MEDICARE, OTHER, SELFPAY ==
--- NOTE | 2024-11-19 08:21 | DI.MRI.S_ITS ---
PROCEDURE: MR KNEE LT WO CON INDICATIONS: pain, effusion TECHNIQUE: Noncontrast sagittal PD fast spin echo and T2 fast spin echo with fat saturation, sagittal 3-D FLASH with fat saturation; coronal T1 spin echo and PD fast spin echo with fat saturation, and axial PD fast spin echo with fat saturation through the knee. COMPARISON: None. FINDINGS: Image quality: Excellent. Bones: Mild marrow edema and subchondral cyst formation is present at the peripheral medial femoral condyle and medial tibial plateau (20/17; 17/6). The bone marrow signal is otherwise normal. There is no acute fracture or dislocation. Joints: There is a small knee joint effusion. There is mild knee osteoarthritis, predominantly in the medial compartment. Lopez's cyst: None. Menisci: Superimposed on severe truncation and maceration, there are multifocal small radial tears along the body of the medial meniscus (20/13-22) with associated tearing of the deep medial meniscofemoral and meniscotibial ligaments (20/16). The lateral meniscus is normal. The posterior root attachments are normal. Cruciate ligaments: The anterior cruciate ligament is normal. The posterior cruciate ligament is normal. Collateral ligaments: The medial collateral ligament complex is normal. The lateral collateral ligament complex is normal. Popliteus Muscle/Tendon: The popliteus muscle and tendon are normal. Extensor mechanism: The quadriceps tendon is normal. The patellar tendon is normal. The medial and lateral patellar retinacular attachments are normal. Articular cartilage: Multifocal areas of near full-thickness and full-thickness chondral loss are present at the medial compartment (20/17; 17/8). Partial-thickness chondral loss is present at the lateral patellofemoral compartment (15/13). Other: No other acute findings. IMPRESSION: 1. Severe degenerative tearing of the medial meniscus with near full-thickness chondral loss in the medial compartment. 2. Mild knee osteoarthritis with small joint effusion, and associated marrow edema /articular cartilage defects. Dictated by: Fabian Alexander M.D. on 11/20/2024 at 16:27 Approved by: Fabian Alexander M.D. on 11/20/2024 at 16:34
== END ==
PROVIDERS: Family Provider Internal Medicine; PCP Family Medicine; Referring Provider Family Medicine; Visit Provider Family Medicine
DX: M23.232 Derangement of other medial meniscus due to old tear or injury, left knee (principal); M17.12 Unilateral primary osteoarthritis, left knee; M25.562 Pain in left knee; M25.462 Effusion, left knee
CPT/HCPCS: 73721

== ENCOUNTER → 2025-02-10 09:40 | Outpatient (CLI) | payer MEDICARE, OTHER, SELFPAY ==
--- NOTE | 2025-02-10 09:43 | DI.MG.S_ITS ---
MM screening mammo BI: 02/10/2025. BI-RADS: 1 CLINICAL: 69-year old female for bilateral screening mammogram. Tyrer-Cuzick lifetime risk of 5.0%. No personal or first-degree family history of breast cancer. PRIOR EXAMS 12/30/2023, 12/04/2022, 11/30/2020, 10/05/2019, 09/22/2018. MAMMOGRAPHY TECHNIQUE: 2D and 3D (tomosynthesis) digital mammographic views obtained, with additional images as needed for full coverage. Current study was also evaluated with a Computer Aided Detection (CAD) system. DENSITY C. The breasts are heterogeneously dense, which may obscure small masses. MAMMOGRAPHY FINDINGS Bilateral: No suspicious mass, asymmetry, microcalcification, or other abnormality seen. IMPRESSION: * No evidence of malignancy. RECOMMENDATIONS Bilateral * Annual screening mammography. OVERALL ASSESSMENT CATEGORY BI-RADS-1: Negative. The [employer] recommends annual screening mammography beginning at age 40 for women with average risk of breast cancer. ELECTRONICALLY SIGNED: Marie Hudson M.D. on 02/10/2025 at 02:10:40 PM PT Interpreting Station ID: [id number]
== END ==
PROVIDERS: Family Provider Internal Medicine; PCP Family Medicine; Referring Provider Family Medicine; Visit Provider Family Medicine
DX: Z12.31 Encounter for screening mammogram for malignant neoplasm of breast (principal); R92.333 Mammographic heterogeneous density, bilateral breasts
CPT/HCPCS: 77063; 77067

== ENCOUNTER → 2025-02-18 16:34 | Outpatient (CLI) | payer MEDICARE, OTHER, SELFPAY ==
--- NOTE | 2025-02-18 16:36 | DI.MRI.S_ITS ---
PROCEDURE: MR SHOULDER RT WO CON INDICATIONS: right should pain TECHNIQUE: Noncontrast oblique coronal T2 fast spin echo with fat saturation, oblique sagittal T1 spin echo and T2 fast spin echo with fat saturation, axial T1 spin echo and T2 fast spin echo with fat saturation through the shoulder. COMPARISON: None. FINDINGS: Image quality: Excellent. Rotator cuff: The entirety of the supraspinatus tendon is diminutive and irregular, concerning for high-grade tear. There is additional high-grade, interstitial, partial width tear at the footprint of the infraspinatus. The teres minor is unremarkable. The subscapularis is intact. No muscle edema or fatty atrophy. Bones and bursae: Severe degenerative changes of the acromioclavicular joint. Type 2 acromion. No os acromiale. Large subacromial/subdeltoid bursitis, with extensive synovitis. Mild subchondral marrow edema in the humeral head, which may be degenerative versus reactive. No acute fracture. No focal chondral defect of the glenohumeral articulation. Capsule and soft tissues: Superior labral tear, extending anteriorly to the anterior labrum. No paralabral cyst. Moderate tenosynovitis of the extra-articular biceps tendon. Low-grade tear of the extra-articular biceps tendon, partially visualized in the distal aspect. The intra-articular biceps tendon is unremarkable. Moderate glenohumeral effusion. Moderate subcoracoid bursitis. No intra-articular body. Mild muscle edema of the lateral aspect of the deltoid, likely representing mild muscle strain. IMPRESSION: 1. Severe degenerative changes of the acromioclavicular joint. 2. Large subacromial/subdeltoid bursitis with extensive synovitis. Sterility cannot be established based on imaging. 3. Moderate glenohumeral effusion. Moderate subcoracoid bursitis. 4. Diminutive and irregular supraspinatus tendon, concerning for high-grade, full width tear. 5. High-grade, partial width tear of the infraspinatus. 6. Low-grade tear of the extra-articular biceps tendon. 7. Mild muscle strain of the lateral aspect of the deltoid. Dictated by: Esther García M.D. on 02/19/2025 at 9:30 Approved by: Esther García M.D. on 02/19/2025 at 9:41
== END ==
PROVIDERS: Family Provider Internal Medicine; PCP Family Medicine; Referring Provider Family Medicine; Visit Provider Family Medicine
DX: S46.811A Strain of other muscles, fascia and tendons at shoulder and upper arm level, right arm, initial encounter (principal); S43.491A Other sprain of right shoulder joint, initial encounter; S46.211A Strain of muscle, fascia and tendon of other parts of biceps, right arm, initial encounter; M75.51 Bursitis of right shoulder; M25.411 Effusion, right shoulder; X58.XXXA Exposure to other specified factors, initial encounter
CPT/HCPCS: 73221

== ENCOUNTER 2025-07-27 17:18 | Emergency (ER) | payer OTHER, MEDICARE, SELFPAY ==
--- NOTE | 2025-07-27 | DI.CT.S_ITS ---
PROCEDURE: CT LE LT W CON INDICATIONS: left TIBIAL PLATEAU FX TECHNIQUE: Noncontrast 1-1.5 mm axial sections acquired from the mid-patella to the proximal tibia, with coronal and sagittal reformats. COMPARISON: Same-day any in femur radiographs 07/27/2025. FINDINGS: Image quality: Diagnostic. Bones: There is mildly displaced sagittally oriented fracture originating at the tibial spine extending inferiorly to the medial aspect of the proximal tibial plateau. Mild tricompartmental osteoarthrosis. Soft tissues: Lower extremity soft tissue edema. Suprapatellar joint effusion. IMPRESSION: Mildly displaced proximal tibial plateau fracture extending to the medial aspect of the proximal tibial diaphysis. Findings most consistent with Schatzker type 4 fracture pattern. Approved by: Kyra Mutsafa M.D.,Ph.D. on 07/27/2025 at 19:17
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
[2025-07-27 17:31] VITALS: BP 148/89; PULSE 74; RESP 18; TEMP 36.6; O2SAT 99; BMI 21.9
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
[2025-07-27] MEDS: KETOROLAC 30 MG/ML VIAL 15 MG IV (18:09)
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
[2025-07-27 19:38] VITALS: PULSE 63; O2SAT 96
[2025-07-27 19:39] VITALS: BP 171/81; PULSE 63; O2SAT 99
[2025-07-27 19:40] VITALS: BP 171/85; PULSE 61; O2SAT 100
--- NOTE | 2025-07-27 20:18 | PC.NURSE ---
Knee immobilizer placed on patient. Pt to restroom via Wheelchair. Pt states pain is tolerable especially now with knee immobikuize
--- NOTE | 2025-07-27 20:19 | PC.NURSE ---
Pt states pain is tolerable now after knee immobolizer placed. Pt to restroom via wheelchair. Still states some discomfort to L knee
== END 2025-07-27 20:32 | disposition short-term general hospital (02) ==
PROVIDERS: Emergency Provider Emergency Medicine; Family Provider Internal Medicine; PCP Family Medicine
DX: S82.142A Displaced bicondylar fracture of left tibia, initial encounter for closed fracture (principal); S50.812A Abrasion of left forearm, initial encounter; S80.211A Abrasion, right knee, initial encounter; V13.4XXA Pedal cycle driver injured in collision with car, pick-up truck or van in traffic accident, initial encounter
CPT/HCPCS: 73552; 73560; 73590; 73700; 96374; 96375; 99283; 99284; J1171; J1885

== ENCOUNTER → 2025-10-12 14:53 | Outpatient (CLI) | payer MEDICARE, OTHER, SELFPAY | PROVIDERS: Family Provider Internal Medicine; PCP Family Medicine; Visit Provider Family Medicine | DX: M25.469 Effusion, unspecified knee (principal) | CPT/HCPCS: 87205 ==

== ENCOUNTER → 2025-10-12 14:58 | Outpatient (CLI) | payer MEDICARE, OTHER, SELFPAY ==
[2025-10-12 16:25] LABS: Add Manual Diff / Slide Review NO; Hematocrit 36.6 % (36-46); Hemoglobin 12.3 g/dL (12.0-16.0); Lymphocytes Absolute Auto 2900 /uL (1100-4500); Mean Corpuscular HGB Conc 33.6 % (30-36); Mean Corpuscular Hemoglobin 28.6 PG (26-34); Mean Corpuscular Volume 85.1 fL (80-100); Platelet Count 367 X10^3/uL (150-400)
[2025-10-12 17:10] LABS: Alanine Aminotransferase 14 IU/L (<35); Albumin 4.0 g/dL (3.5-5.0); Albumin Globulin Ratio 1.4 (1.0-2.8); Alkaline Phosphatase 81 U/L (38-126); Blood Urea Nitrogen 29 mg/dL (7-17); Calcium 9.6 mg/dL (8.4-10.2); Carbon Dioxide 29 mmol/L (22-32); Chloride 102 mmol/L (98-107); Estimated Glomerular Filt Rate > 60 mL/min (>60); Globulin 2.8 g/dL (1.7-4.1); Glucose 90 mg/dL (70-99); HEMOLYSIS < 15 (0-50); Potassium 4.3 mmol/L (3.4-5.1); Sodium 139 mmol/L (137-145); Total Protein 6.8 g/dL (6.3-8.2)
[2025-10-12 17:38] LABS: TSH w/ Reflex to FT4 1.23 uIU/mL (0.47-4.68)
== END ==
PROVIDERS: Family Provider Internal Medicine; PCP Family Medicine; Referring Provider Family Medicine; Visit Provider Family Medicine
DX: R53.82 Chronic fatigue, unspecified (principal)
CPT/HCPCS: 36415; 80053; 84443; 85025; 87205